=== PATIENT | male | born 1960 | race Caucasian/White ===

== ENCOUNTER → 2020-07-04 17:22 | Outpatient (CLI) | payer OTHER, SELFPAY ==
--- NOTE | ~2020-07-04 | MR_ITS ---
EXAMINATION: MR knee RT wo con DATE: 07/04/2020 19:08 INDICATION: Right knee pain. Other instability, right knee. TECHNIQUE: Magnetic resonance imaging (MRI) of the right knee was performed without intravenous contr ast. Sequences included axial PD-weighted FS FSE, coronal PD-weighted FSE and PD-weighted FS FSE, sag ittal PD-weighted FSE, and sagittal T2-weighted FS FSE. COMPARISON: None. FINDINGS: Medial compartment: There is a complex tear of posterior horn of medial meniscus, which is small. There is full-thickness cartilage loss of tibial condyle involving the medial articular surface and deep partial thickness c artilage loss of tibial condyle involving the central articular surface with mild subchondral edema. There is full-thickness and near full-thickness cartilage loss of femoral condyle involving the centr al and medial articular surface with mild subchondral edema-like marrow signal intensity. There are t iny osteophytes. Lateral compartment: Lateral meniscus is normal. There is cartilage surface irregularity of tibial condyle with mild subch ondral edema-like marrow signal intensity. Femoral cartilage is normal. Patellofemoral compartment: There is shallow partial-thickness cartilage loss of patellar medial facet and median ridge. There is shallow partial-thickness cartilage loss of medial trochlea. There are tiny marginal osteophytes. Ligaments and tendons: The anterior cruciate ligament is thickened with increased signal, likely mucoid degeneration. The po sterior cruciate ligament is normal. The medial collateral ligament and lateral collateral ligament c omplex are intact. There is mild patellar tendinopathy. Fluid: There is a moderate-sized knee joint effusion. There is mild prepatellar and superficial infrapatella r bursitis. There is trace fluid in a Figueroa's cyst. There is mild anserinus bursitis. IMPRESSION: 1. Severe chondrosis of medial compartment and mild chondrosis of lateral and patellofemoral compartm ents. 2. Tear of medial meniscus. 3. Moderate-sized knee joint effusion. Reviewed, dictated and finalized at location A. IMPRESSION: 1. Severe chondrosis of medial compartment and mild chondrosis of lateral and p atellofemoral compartments. 2. Tear of medial meniscus. 3. Moderate-sized knee joint effusion.
== END ==
PROVIDERS: PCP Family Medicine; Visit Provider Nurse Practitioner Family
DX: M25.461 Effusion, right knee (principal); S83.241A Other tear of medial meniscus, current injury, right knee, initial encounter; X58.XXXA Exposure to other specified factors, initial encounter
CPT/HCPCS: 73721

== ENCOUNTER → 2021-01-15 08:55 | Outpatient (CLI) | payer OTHER, SELFPAY ==
--- NOTE | ~2021-01-15 | XR_ITS ---
EXAMINATION: XR foot LT min 3V EXAM DATE: 01/15/2021 09:16 INDICATION: No known recent injury provided at this time. Pain of the left foot, heel. TECHNIQUE: Left foot dorsoplantar, lateral and oblique projections obtained and reviewed. There is n o prior study for comparison. FINDINGS: Left metatarsal bones unremarkable. There is mild 1st metatarsophalangeal joint primary o steoarthritis. Some faint vascular, arterial calcifications noted. No periosteal reaction or band of sclerosis to suggest subacute stress fracture. There are no acute fractures identified. Calcaneus u nremarkable. There is no significant interval change. 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 Reviewed, dictated and finalized at location A.
== END ==
PROVIDERS: PCP Family Medicine; Visit Provider Nurse Practitioner Family
DX: M19.072 Primary osteoarthritis, left ankle and foot (principal)
CPT/HCPCS: 73630

== ENCOUNTER 2021-01-29 08:52 | Outpatient (CLI) | payer OTHER, SELFPAY ==
--- NOTE | 2021-01-29 11:30 | NEURO_ITS ---
Impression: # Complains of numbness of upper and lower extremities. # Right Carpal Tunnel Syndrome. # Normal nerve conduction study otherwise including lower extremities. # Normal needle/EMG exam. # Clinical correlation recommended. Nerve Conduction Studies Anti Sensory Summary Table Stim Site NR Peak (ms) P-T Amp (?V) Site1 Site2 Delta-P (ms) Dist (cm) Jarret (m/s) Left Median Anti Sensory (2-3nd Digit) Wrist 3.0 32.0 Wrist 2-3nd Digit 3.0 14.0 47 Wrist 3.3 24.0 Wrist 2-3nd Digit 3.0 14.0 47 Right Median Anti Sensory (2-3nd Digit) Wrist 3.8 11.1 Wrist 2-3nd Digit 3.8 14.0 37 Wrist 4.2 23.0 Wrist 2-3nd Digit 3.8 14.0 37 Left Radial Anti Sensory (Base 1st Digit) Wrist 2.9 15.3 Wrist Base 1st Digit 2.9 0.0 Right Radial Anti Sensory (Base 1st Digit) Wrist 2.7 12.8 Wrist Base 1st Digit 2.7 0.0 Left Sup Fibular Anti Sensory (Ant Lat Mall) 14 cm 3.3 33.3 14 cm Ant Lat Mall 3.3 16.0 48 Right Sup Fibular Anti Sensory (Ant Lat Mall) 14 cm 3.6 36.3 14 cm Ant Lat Mall 3.6 16.0 44 Left Sural Anti Sensory (Lat Mall) Calf 4.1 20.5 Calf Lat Mall 4.1 17.0 41 Right Sural Anti Sensory (Lat Mall) Calf 4.0 18.7 Calf Lat Mall 4.0 16.0 40 Left Ulnar Anti Sensory (5th Digit) Wrist 3.0 35.4 Wrist 5th Digit 3.0 14.0 47 Right Ulnar Anti Sensory (5th Digit) Wrist 2.8 61.2 Wrist 5th Digit 2.8 14.0 50 Motor Summary Table Stim Site NR Onset (ms) O-P Amp (mV) Site1 Site2 Delta-0 (ms) Dist (cm) Jarret (m/s) Left Median Motor (Abd Poll Brev) Wrist 3.7 4.4 Elbow Wrist 5.8 33.0 57 Elbow 9.5 3.8 Right Median Motor (Abd Poll Brev) Wrist 4.6 3.5 Elbow Wrist 5.9 33.0 56 Elbow 10.5 4.1 Left Peroneal Motor (Vastus Med) Ankle 5.1 3.0 Popit Ankle 10.2 46.0 45 Popit 15.3 2.8 Right Peroneal Motor (Vastus Med) Ankle 5.5 6.8 Popit Ankle 9.3 42.0 45 Popit 14.8 6.4 Left Tibial Motor (Abd Chandra Brev) Ankle 5.4 3.6 Knee Ankle 10.6 46.0 43 Knee 16.0 1.7 Right Tibial Motor (Abd Chandra Brev) Ankle 5.9 1.3 Knee Ankle 11.0 46.0 42 Knee 16.9 1.5 Left Ulnar Motor (Abd Dig Minimi) Wrist 3.0 4.6 A Elbow Wrist 6.5 35.0 54 A Elbow 9.5 3.7 Right Ulnar Motor (Abd Dig Minimi) Wrist 3.0 4.2 A Elbow Wrist 6.1 33.0 54 A Elbow 9.1 3.2 F Wave Studies NR F-Lat (ms) L-R F-Lat (ms) Left Median (Mrkrs) (Abd Poll Brev) 31.26 0.91 Right Median (Mrkrs) (Abd Poll Brev) 32.17 0.91 Left Peroneal (Mrkrs) (EDB) 58.52 0.94 Right Peroneal (Mrkrs) (EDB) 59.46 0.94 Left Tibial (Mrkrs) (Abd Hallucis) 60.24 0.51 Right Tibial (Mrkrs) (Abd Hallucis) 60.75 0.51 Left Ulnar (Mrkrs) (Abd Dig Min) 32.80 0.17 Right Ulnar (Mrkrs) (Abd Dig Min) 32.97 0.17 EMG Side Muscle Nerve Root Ins Act Fibs Amp Dur Recrt Comment Right 1stDorInt Ulnar C8-T1 Nml Nml Nml Nml Nml Right Ext Indicis Radial (Post Int) C7-8 Nml Nml Nml Nml Nml Right Ext Digitorum Radial (Post Int) C7-8 Nml Nml Nml Nml Nml Right BrachioRad Radial C5-6 Nml Nml Nml Nml Nml Right PronatorTeres Median C6-7 Nml Nml Nml Nml Nml Right Abd Poll Brev Median C8-T1 Nml Nml Nml Nml Nml Right AntTibialis Dp Br Fibular L4-5 Nml Nml Nml
== END 2021-01-29 08:53 | disposition home or self-care (01) ==
LOC: ANHNEURO 08:54
PROVIDERS: PCP Family Medicine; Visit Provider Physician Assistant Medical
DX: R20.0 Anesthesia of skin (principal); G56.01 Carpal tunnel syndrome, right upper limb
CPT/HCPCS: 95886; 95913

== ENCOUNTER → 2021-10-16 13:41 | Outpatient (CLI) | payer OTHER, SELFPAY ==
--- NOTE | ~2021-10-16 | XR_ITS ---
XR cervical spine min 6V DATE: 10/16/2021 14:12 INDICATION: Neck injury. Skin anesthesia, paresthesia TECHNIQUE: AP, open-mouth, swimmer's and flexion, extension and neutral lateral views COMPARISON: None FINDINGS: There is straightening of the cervical spine which may be due to muscle spasm. There is retrolisthesis at C3-4, measuring 2 mm in neutral, 1.3 mm in flexion, 3 mm in extension. C1 and C2 are normally aligned and the odontoid process is intact. No fracture or dislocation or lock ed facet or prevertebral soft tissue swelling. There is preservation of intervertebral disc space at C2-3, C4-5 and C5-6. There is moderate loss of interspace height at C3-4. There is moderately severe degenerative disc disease at C6-7. IMPRESSION: Straightening Mild retrolisthesis at C3-4 Moderate degenerative disc disease at C3-4 Moderately severe degenerative disease at C6-7 Reviewed, dictated and finalized at location A. UAGES AND LITERATURE INSTRUCTOR
== END ==
PROVIDERS: PCP Family Medicine; Visit Provider Nurse Practitioner Family
DX: R20.0 Anesthesia of skin (principal); R20.2 Paresthesia of skin; S19.9XXA Unspecified injury of neck, initial encounter; M53.82 Other specified dorsopathies, cervical region; M50.31 Other cervical disc degeneration, high cervical region; M50.323 Other cervical disc degeneration at C6-C7 level
CPT/HCPCS: 72052

== ENCOUNTER → 2021-11-18 15:36 | Outpatient (CLI) | payer OTHER, SELFPAY ==
--- NOTE | ~2021-11-18 | MR_ITS ---
EXAMINATION: MR cervical spine wo con DATE: 11/18/2021 17:29 INDICATION: Other cervical disc degeneration. Neck pain radiating down the left arm. TECHNIQUE: Magnetic resonance imaging (MRI) of the cervical spine was performed without intravenous c ontrast. Sequences included sagittal T2-weighted FSE, sagittal STIR FSE, sagittal T1-weighted FSE, ax ial MERGE, and axial T2-weighted FSE. COMPARISON: Cervical spine radiographs 10/16/2021 FINDINGS: There is 2 mm retrolisthesis of C3 on C4. Vertebral body heights are normal. There is moder ately decreased disc height at C3-C4, mildly decreased disc height at C5-C6, and moderately decreased disc height at C6-C7. The spinal cord signal intensity is normal. The following disc levels are spec ifically discussed: C2-C3: The disc does not extend beyond the endplate margin. There is no uncovertebral joint osteoarth ritis. There is severe bilateral facet joint osteoarthritis. There is mild left neural foraminal sten osis. There is no central canal stenosis. C3-C4: The disc is bulging. There is moderate bilateral uncovertebral joint osteoarthritis. There is mild right and moderate left facet joint osteoarthritis. There is mild bilateral neural foraminal sheila nosis. There is mild central canal stenosis. C4-C5: The disc is bulging. There is no uncovertebral joint osteoarthritis. There is no facet joint o steoarthritis. There is no neural foraminal stenosis. There is mild central canal stenosis. C5-C6: The disc is bulging. There is mild right and severe left uncovertebral joint osteoarthritis. T here is moderate right and mild left facet joint osteoarthritis. There is mild right and moderate lef t neural foraminal stenosis. There is mild central canal stenosis. C6-C7: The disc is bulging. There is mild right and moderate left uncovertebral joint osteoarthritis. There is mild bilateral facet joint osteoarthritis. There is mild bilateral neural foraminal stenosi s. There is mild central canal stenosis. C7-T1: The disc does not extend beyond the endplate margin. There is no uncovertebral joint osteoarth ritis. There is mild right and severe left facet joint osteoarthritis. There is mild bilateral neural foraminal stenosis. There is no central canal stenosis. IMPRESSION: 1. Moderate cervical spondylosis. Reviewed, dictated and finalized at location A. STIAN SCIENCE HEALER
== END ==
PROVIDERS: PCP Family Medicine; Visit Provider Nurse Practitioner Family
DX: M50.30 Other cervical disc degeneration, unspecified cervical region (principal); M47.892 Other spondylosis, cervical region
CPT/HCPCS: 72141

== ENCOUNTER 2022-09-23 14:34 | Outpatient (NON) | payer BC, SELFPAY | END 2022-09-23 14:35 | disposition home or self-care (01) | PROVIDERS: PCP Family Medicine; Visit Provider Nurse Practitioner | DX: D49.2 Neoplasm of unspecified behavior of bone, soft tissue, and skin (principal) | CPT/HCPCS: 88305 ==

== ENCOUNTER → 2023-09-13 11:39 | Outpatient (CLI) | payer BC, SELFPAY ==
--- NOTE | ~2023-09-13 | XR_ITS ---
XR chest 2V 09/13/2023 11:56 Indication: Cough Procedure: 2 view chest Comparison: No prior studies for comparison. Findings: Heart size normal. No focal air space disease, pulmonary edema, pleural effusion or suspect ed pneumothorax. Left basilar atelectasis. Impression: 1: Left basilar atelectasis. Reviewed, dictated and finalized at location L. LE BREAKER Impression: 1: Left basilar atelectasis.
== END ==
PROVIDERS: PCP Physician Assistant; Visit Provider Physician Assistant
DX: J98.11 Atelectasis (principal)
CPT/HCPCS: 71046

== ENCOUNTER 2024-11-21 09:14 | Outpatient (CLI) | payer MEDICARE, BC, SELFPAY ==
--- OUTSIDE RECORDS SUMMARY | 2024-11-21 09:50 | XMS_ITS | Encounter Summary ---
Author Organization [facility] Address [address] [place] [address] Care Team Providers Care Oracle Wms Consultant Name Role Phone Unavailable Primary Care Provider Unavailabl e Encounter Details Date Type Department Care Team (Late st Contact Info) Description 06/26/2024 Lab Requisition [facility] - DermPath Lab [address] [place] [id number] Asher Castillo MD [address] [place] [address] Social History Tobacco Use Types Packs/Day Years Used Date Smoking Tobacco: Never Assessed Sex and Gender Information Value Date Recorded Sex Assigned at Not on file Gender Identity Not on file Sexual Orientation Not on file documented as of this encounter Plan of Treatment Not on file documented as of this encounter Procedures Procedure Name Priority Date/Time Associated Diagnosis Comments DERMATOPATHOLOGY Routine 06/25/2024 12:0 0 AM CDT documented in this encounter Results * DERMATOPATHOLOGY (06/25/2024 12:00 AM CDT) Case Report Dermatopathology Report Case: [id number] Authorizing Provider: Asher Castillo MD Collected: 06/25/2024 12:00 AM Ordering Location: [facility] - Received: 06/26/2024 02:57 PM DermPath Lab Pathologist: Maria Teresa Baca MD Specimens: A) - Skin, left shoulder B) - Skin, left chest C) - Skin, sternum 2:32 PM CDT DERMATOPATHOLOGY LABORATORY Final Diagnosis Specimen A. SKIN, left shoulder: BASAL CELL CARCINOMA, NODULAR TYPE (C44.619) NOT PRESENT AT SAMPLED MARGIN Specimen B. 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 SKIN, sternum: NEUROFIBROMA (D36.10) PRESENT AT MARGIN 2:32 PM [facility] DERMATOPATHOLOGY LABORATORY Clinical History Changing lesion Check margins 2:32 PM [facility] DERMATOPATHOLOGY LABORATORY Gross Description Specimen A: Received is one formalin filled container labeled with the patient's name and designated left shoulder. The specimen consists of a non-oriented ellipse of skin measuring 15x8x2 mm. The epidermal surface is unremarkable. The margin is inked green. The 12 o'clock and 6 o'clock tips are submitted in cassette 1. The remainder of the ellipse is serially sectioned and submitted in cassette 2. Jar 0. Specimen B: Received is one formalin filled container labeled with the patient's name and designated left chest. The specimen consists of a non-oriented ellipse of skin measuring 15x7x2 mm. The epidermal surface is unremarkable. The margin is inked green. The 12 o'clock and 6 o'clock tips are submitted in cassette 1. The remainder of the ellipse is serially sectioned and submitted in cassette 2. Jar 0. Specimen C: Received is one formalin filled container labeled with the patient's name and designated sternum. The specimen consists of a shave biopsy measuring 5x6x2 mm. Jar 0. 2:32 PM [facility] DERMATOPATHOLOGY LABORATORY Microscopic Description Specimen A. SKIN, left shoulder: Within the dermis there are aggregates of basaloid cells with a high nuclear to cytoplasmic ratio and peripheral palisading. This lesion is not present at the sampled margin of the specimen. Specimen B. SKIN, left chest: There is a proliferation of melanocytes distributed in an irregular pattern along the dermal-epidermal junction with single cells predominating. Extension down the follicular epithelium and focal areas of confluence are present. This melanocytic proliferation is highlighted on MART-1/Melan-A. This lesion is not present at the sampled margin of the specimen. Specimen C. SKIN, sternum: Sections show a proliferation of spindled and S-shaped cells within the dermis. The stromal collagen is delicate and pale. This lesion is present at the margin of the specimen. 2:32 PM [facility] DERMATOPATHOLOGY LABORATORY Disclaimer An external and internal positive and negative controls are appropriate for the histochemical, immunohistochemical and immunofluorescence stain(s) in this case (if any), except where stated explicitly. The performance characteristics of the stain(s) cited in this report were developed and its performance characteristic determined by the Dermatopathology Laboratory at [facility], directed by Dr. Rola Baca. These tests need not be, and therefore are not, approved by the [place] Food and Drug Administration. The tests are used for clinical purposes. Billing Codes Specimen Charges Stain Charges 73228 [id number] 14469 1 1 1 07225 1 2:32 PM CDT DERMATOPATHOLOGY LABORATORY Embedded Images 2:32 PM CDT DERMATOPATHOLOGY LABORATORY Pathology/Cytology TISSUE SPECIMEN FROM SKIN / Unknown 06/25/2024 06/26/2024 2:57 PM CDT Miscellaneous samples (specimen) TISSUE SPECIMEN FROM SKIN / Unknown 06/25/2024 06/26/2024 2:57 PM CDT Miscellaneous samples (specimen) TISSUE SPECIMEN FROM SKIN / Unknown 06/25/2024 06/26/2024 2:57 PM CDT Asher Castillo MD LAB - PATHOLOGY/CYTO LOGY ORDERABLES DERMATOPATHOLOGY LABORATORY [facility] - Department of Dermatology [facility] [address] [place] [address], [address] [place] [address], [facility] [place] [phone] documented in this encounter Visit Diagnoses Not on filedocumented in this encounter
--- OUTSIDE RECORDS SUMMARY | 2024-11-21 09:50 | XMS_ITS | Clinical Summary ---
Author Organization [facility] Address [address] [place] [address] Care Team Providers Care Wood Dowel Machine Operator Name Role Phone Unavailable Primary Care Provider Unavailabl e Medications celecoxib (CeleBREX) 50 mg capsule Take 50 mg by mouth. Active Active Problems No known active problems Encounters Date Type Department Care Team Description 10/30/2024 External Device Data STL ABSTRACTION Provider, Abstract 10/29/2024 4:30 PM FREEZER PERSON Telephone Check Up [facility] Oncology [facility] [address] [place] [address] Alec Jones MD 10/11/2024 External Device Data STL ABSTRACTION Provider, Abstract 10/05/2024 11:15 AM FREEZER PERSON Office Visit [facility] Oncology [facility] [address] [place] [address] Alec Jones MD Melanoma in situ of other site (CMS/HCC) (Primary Dx) 10/02/2024 External Device Data STL ABSTRACTION Provider, Abstract from Last 3 Months Family History Medical History Relation Name Comments No Known Problems Brother No Known Problems Child 1 No Known Problems Child 2 No Known Problems Father Breast Cancer Mother No Known Problems Sister Relation Name Status Comments Brother Alive Child 1 Alive Child 2 Alive Father Alive Mother Alive Sister Alive Social History Tobacco Use Types Packs/Day Years Used Date Smoking Tobacco: Never Tobacco Cessation:Counseling Given: Not Answered Sex and Gender Information Value Date Recorded Sex Assigned at Not on file Legal Sex Male 10:25 PM CDT Gender Identity Not on file Sexual Orientation Not on file Last Filed Vital Signs Vital Sign Reading Time Taken Comments Blood Pressure 133/83 10/05/2024 11:11 AM FREEZER PERSON Pulse 68 10/05/2024 11:07 AM FREEZER PERSON Temperature 36.4 C (97.6 F) 10/05/2024 11:07 AM FREEZER PERSON Respiratory Rate 16 10/05/2024 11:07 AM FREEZER PERSON Oxygen Saturation 97% 10/05/2024 11:07 AM FREEZER PERSON Inhaled Oxygen Concentration - - Weight 94.9 kg (209 lb 3.2 oz) 10/05/2024 11:07 AM FREEZER PERSON Height 185.4 cm (6' 1 ) 07/23/2024 2:04 PM FREEZER PERSON Body Mass Index 27.6 07/23/2024 2:04 PM FREEZER PERSON Plan of Treatment Upcoming Encounters Date Type Department Care Team (Late st Contact Info) Description 04/29/2025 11:30 AM CDT Office Visit [facility] Oncology and Hematology - [place] [address] [place] [address] Alec Jones MD [address] [place] [address] Health Maintenance Due Date Last Done Comments Pre-Diabetes and Diabetes Screening 1960 DTAP/TDAP/TD VACCINES (1 - Tdap) 1979 COLORECTAL SCREENING 2005 Colorectal Cancer Screening 2005 FIT-DNA Q 3 years 2005 FIT/FOBT Q 1 year 2005 Flex Sig/CT Colonography Q 5 years 2005 ZOSTER VACCINE (1 of 2) 2010 INFLUENZA VACCINE (#1) 2024 RSV VACCINE (60+ or ) (1 - 1-dose 75+ series) 2035 Insurance * Guarantor: Arjun Hunter Account Type Relation to Patient Date of Phone Billing Address Personal/Family Self [address] [place] [address] MEDICARE PART A AND B [facility]
--- OUTSIDE RECORDS SUMMARY | 2024-11-21 09:50 | XMS_ITS | Referral Summary ---
Author Organization [facility] Address [address] [place] [address] Care Team Providers Care Investigations Consultant Name Role Phone Unavailable Primary Care Provider Unavailabl e Source Comments [facility],non-owned Affiliates and Associated Physician Practices is amultiple site organization consisting of ambulatory clinics and hospital sitesin [place], [place], [place] and [place]. This disclosure is being madepursuant to the Care Everywhere program and may not contain all information available regarding this patient. Last updated 18.[facility] Social History Tobacco Use Types Packs/Day Years Used Date Smoking Tobacco: Never Assessed Sex and Gender Information Value Date Recorded Sex Assigned at Not on file Gender Identity Not on file Sexual Orientation Not on file Plan of Treatment Not on file Arjun Hunter Personal/Family Self 1960 [address] [place] [address] Arjun Hunter Personal/Family Self 1960
--- OUTSIDE RECORDS SUMMARY | 2024-11-21 09:50 | XMS_ITS | Clinical Summary ---
Author Organization [facility] Address [address] [place] [address] Care Team Providers Care Elastic Attacher Zigzag Name Role Phone Unavailable Primary Care Provider Unavailabl e Source Comments [facility],non-owned Affiliates and Associated Physician Practices is amultiple site organization consisting of ambulatory clinics and hospital sitesin [place], [place], [place] and [place]. This disclosure is being madepursuant to the Care Everywhere program and may not contain all information available regarding this patient. Last updated 18.[facility] Social History Tobacco Use Types Packs/Day Years Used Date Smoking Tobacco: Never Assessed Sex and Gender Information Value Date Recorded Sex Assigned at Not on file Gender Identity Not on file Sexual Orientation Not on file Plan of Treatment Health Maintenance Due Date Last Done Comments COLOGUARD (AGES 45-75) - COL ON CA SCREENING 1960 COLON MONITORING 1960 COLONOSCOPY - COLON CA SCREENING 1960 CT COLONOGRAPHY - COLON CA SCREENING 1960 Colorectal Cancer Screening 1960 FIT - COLON CA SCREENING 1960 FLEX SIG - COLON CA SCREENING 1960 LIPID TESTING 1960 MEDICARE AWV 12 MONTHS 1960 HIV SCREENING 1975 HEPATITIS C SCREENING 05/20/1978 DTAP/TDAP/TD VACCINES (1 - Tdap) 1979 PNEUMOCOCCAL VACCINE 50+ (1 of 1 - PCV) 2010 ZOSTER VACCINE (1 of 2) 2010 COVID-19 VACCINE ( - 2023-2 5 season) 2024 INFLUENZA VACCINE (#1) 2024 DEPRESSION SCREENING 09/19/2024 Respiratory Syncytial Virus (RSV) Vaccine Pt: or over 60 yrs (1 - 1-dose 75+ series) 2035 HEPATITIS B VACCINE Aged Out No longe r eligible based on patient's age to complete this topic HIB VACCINE Aged Out No longer eligi ble based on patient's age to complete this topic HPV VACCINE Aged Out No longer eligi ble based on patient's age to complete this topic MENINGOCOCCAL (Group B) VACCINE Aged Out No longer eligible based on patient's age to complete this topic MENINGOCOCCAL VACCINE Aged Out No angie ramu eligible based on patient's age to complete this topic PNEUMOCOCCAL VACCINE Aged Out No long er eligible based on patient's age to complete this topic Arjun Hunter Personal/Family Self 1960
--- OUTSIDE RECORDS SUMMARY | 2024-11-21 09:50 | XMS_ITS | Patient Health Summary ---
Author Organization [facility] Address [address] [place] [address] Care Team Providers Care Operational Assistant Name Role Phone Unavailable Primary Care Provider Unavailabl e Note from [facility],non-owned Affiliates and Associated Physician Practices is amultiple site organization consisting of ambulatory clinics and hospital sitesin [place], [place], [place] and [place]. This disclosure is being madepursuant to the Care Everywhere program and may not contain all information available regarding this patient. Last updated 18.[facility] Social History Tobacco Use Types Packs/Day Years Used Date Smoking Tobacco: Never Assessed Sex and Gender Information Value Date Recorded Sex Assigned at Not on file Gender Identity Not on file Sexual Orientation Not on file Procedures * DERMATOPATHOLOGY(Performed 06/25/2024) Results * DERMATOPATHOLOGY (06/25/2024 12:00 AM CDT) Case Report Dermatopathology Report Case: [id number] Authorizing Provider: Asher Castillo MD Collected: 06/25/2024 12:00 AM Ordering Location: [facility] - Received: 06/26/2024 02:57 PM DermPath Lab Pathologist: Maria Teresa Baca MD Specimens: A) - Skin, left shoulder B) - Skin, left chest C) - Skin, sternum 4 2:32 PM CDT DERMATOPATHOLOGY LABORATORY Final Diagnosis Specimen A. SKIN, left shoulder: BASAL CELL CARCINOMA, NODULAR TYPE (C44.619) NOT PRESENT AT SAMPLED MARGIN Specimen B. 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 SKIN, sternum: NEUROFIBROMA (D36.10) PRESENT AT MARGIN 4 2:32 PM CDT DERMATOPATHOLOGY LABORATORY Clinical History Changing lesion Check margins 2:32 PM [facility] DERMATOPATHOLOGY LABORATORY Gross Description Specimen A: Received [...] measuring 5x6x2 mm. Jar 0. 2:32 PM [facility] DERMATOPATHOLOGY LABORATORY Microscopic Description Specimen A. SKIN, [...] the margin of the specimen. 2:32 PM [facility] DERMATOPATHOLOGY LABORATORY Disclaimer An external and internal positive and negative controls are appropriate for the histochemical, immunohistochemical and immunofluorescence stain(s) in this case (if any), except where stated explicitly. The performance characteristics of the stain(s) cited in this report were developed and its performance characteristic determined by the Dermatopathology Laboratory at [facility], directed by Dr. Rola Baca. These tests need not be, and therefore are not, approved by the [place] Food and Drug Administration. The tests are used for clinical purposes. Billing Codes Specimen Charges Stain Charges 59098 63296 72157 1 1 1 74569 1 2:32 PM CDT DERMATOPATHOLOGY LABORATORY Embedded Images 2:32 PM CDT DERMATOPATHOLOGY LABORATORY Pathology/Cytology TISSUE SPECIMEN FROM SKIN / Unknown 06/25/2024 06/26/2024 2:57 PM CDT Miscellaneous samples (specimen) TISSUE SPECIMEN FROM SKIN / Unknown 06/25/2024 06/26/2024 2:57 PM CDT Miscellaneous samples (specimen) TISSUE SPECIMEN FROM SKIN / Unknown 06/25/2024 06/26/2024 2:57 PM CDT Asher Castillo MD LAB - PATHOLOGY/CYTO LOGY ORDERABLES DERMATOPATHOLOGY LABORATORY [facility] - Department of Dermatology [facility] [address] [place] [address], [address] [phone]
--- OUTSIDE RECORDS SUMMARY | 2024-11-21 09:50 | XMS_ITS | CONTINUITY OF CARE DOCUMENT ---
Author Name denita barger Address Unknown Organization [facility] Address [address] [place] [address] Phone [phone] Care Team Providers Care Arc Cutter Name Role Phone denita barger Unavailable Unavailable
--- OUTSIDE RECORDS SUMMARY | 2024-11-21 09:50 | XMS_ITS | Continuity of Care Document ---
Author Organization [facility] Address [id number] [place] [address] [address] [place] [address] Phone Care Team Providers Care Plate Glass Polisher Name Role Phone Sarahi Mayes Unavailable Unavailable Advance Directives Directive Yes / No Effective Date File Name No Information Encounters Encounter Description Practice Location Reason(s) For Visit Diagnoses Date Provider Providers Copied on Encounter [facility], [address], [place], [place], [id number], [place] tel:[phone] [address] [facility] No Information Oct-0 7-200 2 Sugey Mcclain. [address] , [address], [place], [address], [place]. tel:[phone] Family History Family Member Type Diagnosis Age At Onset No Information Payers Payer name Insurance type Covered republican ID Authorpayama camelia(s) [facility] [id number] Social History Type Description Quantity Date Captured Comments Sex Male Smoking Status No Information Chief Complaint And Reason For Visit No Information Reason For Referral Reason For Referral No Information History Of Present Illness Encounter Date Complaint History Of Prese nt Illness No Information Functional Status Date Functional Assessmen t No Information Instructions Date Instruction Additional Infor mation No Information Assessments Type Assessment Date No Information Patient Care Teams Name Effective Dates (start - stop) Status Members No Information
--- NOTE | 2024-11-21 11:00 | NEURO_ITS ---
Impression: # Complains of numbness of hands. Non-diabetic. ? # Right mild Carpal Tunnel Syndrome. ? # No ulnar neuropathy. ? # Normal needle/EMG exam. ? # Clinical correlation recommended. Nerve Conduction Studies Anti Sensory Summary Table ?Stim Site NR Peak (ms) P-T Amp (?V) Site1 Site2 Delta-P (ms) Dist (cm) Jarret (m/s) Left Median Anti Sensory (2-3nd Digit) Wrist ? 3.1 26.3 Wrist 2-3nd Digit 3.1 14.0 45 Wrist ? 3.2 27.6 Wrist 2-3nd Digit 3.1 14.0 45 Right Median Anti Sensory (2-3nd Digit) Wrist ? 4.5 23.5 Wrist 2-3nd Digit 4.5 14.0 31 Wrist ? 4.7 18.8 Wrist 2-3nd Digit 4.5 14.0 31 Left Radial Anti Sensory (Base 1st Digit) Wrist ? 2.3 16.8 Wrist Base 1st Digit 2.3 0.0 Right Radial Anti Sensory (Base 1st Digit) Wrist ? 2.7 11.0 Wrist Base 1st Digit 2.7 0.0 Left Ulnar Anti Sensory (5th Digit) Wrist ? 2.9 31.1 Wrist 5th Digit 2.9 14.0 48 Right Ulnar Anti Sensory (5th Digit) Wrist ? 2.8 27.5 Wrist 5th Digit 2.8 14.0 50 Motor Summary Table ?Stim Site NR Onset (ms) O-P Amp (mV) Site1 Site2 Delta-0 (ms) Dist (cm) Jarret (m/s) Left Median Motor (Abd Poll Brev) Wrist ? 3.6 5.4 Elbow Wrist 6.1 36.0 59 Elbow ? 9.7 5.9 Right Median Motor (Abd Poll Brev) Wrist ? 4.6 1.9 Elbow Wrist 6.4 34.0 53 Elbow ? 11.0 3.6 Left Ulnar Motor (Abd Dig Minimi) Wrist ? 2.7 4.3 A Elbow Wrist 6.1 35.0 57 A Elbow ? 8.8 2.8 Right Ulnar Motor (Abd Dig Minimi) Wrist ? 2.7 2.3 A Elbow Wrist 6.1 35.0 57 A Elbow ? 8.8 1.4 F Wave Studies ?NR F-Lat (ms) L-R F-Lat (ms) Left Median (Mrkrs) (Abd Poll Brev) ? 33.44 1.69 Right Median (Mrkrs) (Abd Poll Brev) ? 35.13 1.69 Left Ulnar (Mrkrs) (Abd Dig Min) ? 33.79 0.22 Right Ulnar (Mrkrs) (Abd Dig Min) ? 34.01 0.22 EMG ?Side Muscle Nerve Root Ins Act Fibs Amp Dur Recrt Comment Right 1stDorInt Ulnar C8-T1 Nml Nml Nml Nml Nml Right Ext Indicis Radial (Post Int) C7-8 Nml Nml Nml Nml Nml Right Ext Digitorum Radial (Post Int) C7-8 Nml Nml Nml Nml Nml Right BrachioRad Radial C5-6 Nml Nml Nml Nml Nml Right PronatorTeres Median C6-7 Nml Nml Nml Nml Nml Right Abd Poll Brev Median C8-T1 Nml Nml Nml Nml Nml Right ABD Dig Min Ulnar C8-T1 Nml Nml Nml Nml Nml Left 1stDorInt Ulnar C8-T1 Nml Nml Nml Nml Nml Left Ext Indicis Radial (Post Int) C7-8 Nml Nml Nml Nml Nml Left Ext Digitorum Radial (Post Int) C7-8 Nml Nml Nml Nml Nml Left BrachioRad Radial C5-6 Nml Nml Nml Nml Nml Left PronatorTeres Median C6-7 Nml Nml Nml Nml Nml Left Abd Poll Brev Median C8-T1 Nml Nml Nml Nml Nml Left ABD Dig Min Ulnar C8-T1 Nml Nml Nml Nml Nml MTDD
== END 2024-11-21 09:15 | disposition home or self-care (01) ==
LOC: ANHNEURO 09:15
PROVIDERS: Visit Provider Nurse Practitioner Adult Health
DX: R20.0 Anesthesia of skin (principal); R20.2 Paresthesia of skin; G56.01 Carpal tunnel syndrome, right upper limb
CPT/HCPCS: 95886; 95911